=== PATIENT | female | born 1990 | race African-American/Black ===

== ENCOUNTER 2017-03-24 17:11 | Emergency (ER) | payer MEDICAID ==
[~2017-03-24] VITALS: Ht 167.6 cm; Wt 57.0 kg
[2017-03-24] MEDS ORDERED: ETHINYL ESTRADIOL (19:03)
[2017-03-24] MEDS ORDERED: SODIUM CHLORIDE 0.9% 1,000 ML IV ONE (21:28)
[2017-03-24 21:48] LABS: BASOPHILS % 0.5 % (0.0-2.0); EOSINOPHILS % 1.9 % (0.0-5.0); HEMATOCRIT. 35.4 % (36.0-48.0); HEMOGLOBIN. 12.4 g/dL (12.0-16.0); LYMPHOCYTES % 29.5 % (20.0-50.0); MEAN CORPUSCULAR HEMOGLOBIN 30.2 pg (28.0-32.0); MEAN CORPUSCULAR VOLUME 86.5 fL (81.0-99.0); MONOCYTES % 8.9 % (2.0-8.0); NEUTROPHILS % 59.2 % (40.0-76.0); PLATELET 319 x1000/uL (130-400); RED CELL DISTRIBUTION WIDTH 13.1 % (11.6-14.6)
[2017-03-24 22:03] LABS: CARBON DIOXIDE 24 mEq/L (21-32); CHLORIDE 106 mEq/L (98-107)
[2017-03-24 22:05] LABS: B-HCG QUANTITATIVE 717 mIU/mL (<3)
[2017-03-24 22:54] LABS: CLARITY URINE CLEAR (CLEAR); COLOR URINE YELLOW (YELLOW); GLUCOSE URINE NEGATIVE (NEGATIVE); KETONES URINE 2+ (NEGATIVE); LEUKOCYTE ESTERASE URINE 3+ (NEGATIVE); NITRITE URINE NEGATIVE (NEGATIVE); OCCULT BLOOD URINE 2+ (NEGATIVE); PH URINE 5.5 (4.5-8.0); PROTEIN URINE NEGATIVE (NEGATIVE); SPECIFIC GRAVITY URINE 1.017 (1.005-1.030)
[2017-03-25 00:14] VITALS: BP 139/80
== END 2017-03-25 00:15 | disposition home or self-care (01) ==
LOC: ER 17:11
DX: N39.0 Urinary tract infection, site not specified (principal); R11.0 Nausea
CPT/HCPCS: 36415; 71010; 80053; 81001; 84702; 85025; 96360; 96361; 99285; J7030; J7050; Z7610

== ENCOUNTER 2018-07-24 23:30 | Emergency (ER) | payer MEDICAID ==
[~2018-07-24] VITALS: Ht 167.6 cm; Wt 56.0 kg
[~2018-07-24 23:30] MED LIST: ETHINYL ESTRADIOL
[2018-07-25 01:30] VITALS: BP 130/87
[2018-07-25] MEDS ORDERED: LIDOCAINE HCL 2% JELLY 5ML TOP ONE (01:30)
== END 2018-07-25 01:49 | disposition home or self-care (01) ==
LOC: ER 23:30
DX: K59.00 Constipation, unspecified (principal)
CPT/HCPCS: 99282

== ENCOUNTER 2018-07-26 04:56 | Emergency (ER) | payer MEDICAID ==
[~2018-07-26] VITALS: Ht 167.6 cm; Wt 56.0 kg
[2018-07-26 09:35] VITALS: BP 127/85
== END 2018-07-26 10:37 | disposition home or self-care (01) ==
LOC: ER 04:56
DX: K59.00 Constipation, unspecified (principal); R10.9 Unspecified abdominal pain; K62.89 Other specified diseases of anus and rectum
CPT/HCPCS: 74018; 99283